=== PATIENT | male | born 1970 | race Caucasian/White ===

== ENCOUNTER 2020-01-10 12:12 | Outpatient (CLI) | payer OTHER, SELFPAY ==
--- NOTE | ~2020-01-10 | XR_ITS ---
EXAMINATION: XR_[id number]_CR EXAM DATE: 01/10/2020 15:24 INDICATION: Pain radiating down right shoulder. TECHNIQUE: Cervical spine frontal, lateral, lateral swimmers, and open-mouth odontoid projections. There is no prior study for comparison. FINDINGS: There is no evidence of acute cervical fracture. The odontoid process is intact. Pre-dens space is normal. Prevertebral soft tissue is normal. There are no soft tissue abnormalities identi fied. The vertebral bodies are aligned. There is mild to moderate disc disease at C5-6 and C6-7. Mild to moderate cervical arthropathy. Lung apices are clear. IMPRESSION: 1. No acute cervical findings. 2. Mild to moderate cervical spondylosis. Reviewed, dictated and finalized at location B.
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
[2020-01-10 14:25] LABS: Estimated Glomerular Filt Rate > 60
== END 2020-01-10 12:13 | disposition home or self-care (01) ==
LOC: ANHIMG 12:28
PROVIDERS: PCP Family Medicine; Visit Provider Nurse Practitioner Family
DX: R42 Dizziness and giddiness (principal); M47.892 Other spondylosis, cervical region
CPT/HCPCS: 36415; 70553; 72040